=== PATIENT | male | born 1975 | race Two or more races ===

== ENCOUNTER 2019-04-24 17:53 | Emergency (ER) | payer MEDICAID, OTHER ==
[~2019-04-24] VITALS: Ht 172.7 cm; Wt 77.1 kg
[2019-04-24] MEDS ORDERED: SULFAMETH/TRIMETH 800/160 MG 1 UDTAB TABLET ONE (18:24)
[2019-04-24] MEDS ORDERED: CEFTRIAXONE 500 MG VIAL ONE (18:24)
[2019-04-24] MEDS ORDERED: LIDOCAINE /MPF 1% VIAL 5 ML VIAL ONE (18:25)
[2019-04-24] MEDS ORDERED: CEFTRIAXONE 500 MG VIAL IM ONE (18:30)
[2019-04-24] MEDS ORDERED: SULFAMETH/TRIMETH 800/160 MG 1 UDTAB TABLET PO ONE (18:30)
[2019-04-24 18:50] VITALS: BP 131/74
--- NOTE | 2019-04-24 18:51 | NUR ---
Patient discharged to home in stable condition. Written and verbal after care instructions given. Patient verbalizes understanding of instruction.
== END 2019-04-24 18:51 | disposition home or self-care (01) ==
LOC: ER 18:01
DX: L03.012 Cellulitis of left finger (principal); F17.200 Nicotine dependence, unspecified, uncomplicated
CPT/HCPCS: 96372; 99283; J0696; J3490

== ENCOUNTER 2019-05-06 21:07 | Emergency (ER) | payer MEDICAID, OTHER ==
[~2019-05-06] VITALS: Ht 167.6 cm; Wt 77.1 kg
[2019-05-06] MEDS ORDERED: ACETAMINOPHEN 325 MG TABLET PO ONE (22:30)
[2019-05-06] MEDS ORDERED: TDAP [DIPH/PERTUSSIS/TET] 0.5 ML VIAL IM ONE ×2 (22:30→22:54)
[2019-05-06] MEDS ORDERED: ACETAMINOPHEN ES 500 MG TABLET ONE (22:54)
[2019-05-06 23:41] VITALS: BP 127/84
--- NOTE | 2019-05-06 23:56 | NUR ---
DR. DHILLON ON THE PHONE WITH DR. RUGGIERO TOOL REPAIR TECHNICIAN NEUROLOGY
--- NOTE | 2019-05-07 00:15 | NUR ---
DR. DHILLON AT BEDSIDE TO DISCUSS PLAN OF CARE WITH PATIENT
--- NOTE | 2019-05-07 00:20 | NUR ---
Patient eloped from facility. ER MD notified.
--- NOTE | 2019-05-07 00:30 | NUR ---
MULTIPLE ATTEMPTS TO CONTACT PATIENT. NO ANSWER. LEFT VOICEMAIL TO RETURN CALL AND TO RETURN TO FACILITY
--- NOTE | 2019-05-07 00:32 | NUR ---
SPOKE WITH PATIENT'S EMERGENCY CONTACT ([id number]). PER , DOES NOT KNOW WHERE THE PATIENT IS, STATES SHE WILL ATTEMPT TO CONTACT PATIENT TO RETURN TO FACILITY.
== END 2019-05-07 00:32 | disposition left against medical advice (07) ==
LOC: ER 21:09
DX: S01.01XA Laceration without foreign body of scalp, initial encounter (principal); H73.892 Other specified disorders of tympanic membrane, left ear; F17.200 Nicotine dependence, unspecified, uncomplicated; V49.49XA Driver injured in collision with other motor vehicles in traffic accident, initial encounter; Y93.89 Activity, other specified; Y92.413 State road as the place of occurrence of the external cause; Y99.8 Other external cause status
CPT/HCPCS: 70450-TC; 70486-TC; 72125-TC; 90715

== ENCOUNTER 2024-07-13 10:05 | Emergency (ER) | payer OTHER ==
[~2024-07-13] VITALS: Ht 165.1 cm; Wt 72.6 kg
[2024-07-13 10:48] VITALS: BP 128/88; TEMP 98.6; O2SAT 98
== END 2024-07-13 10:48 | disposition home or self-care (01) ==
LOC: ER 10:10
DX: F19.10 Other psychoactive substance abuse, uncomplicated (principal); R10.9 Unspecified abdominal pain; F17.200 Nicotine dependence, unspecified, uncomplicated; Z88.7 Allergy status to serum and vaccine